=== PATIENT | female | born 1985 | race Caucasian/White ===

== ENCOUNTER 2022-09-12 08:45 | Inpatient (IN) | payer MEDICAID ==
[2022-10-03] MEDS ORDERED: Scopolamine 1.5 MG Transdermal Patch TOP ONE (05:30)
[2022-10-03] MEDS ORDERED: Celecoxib 200 MG Cap PO ONE (05:30)
[2022-10-03] MEDS ORDERED: Dextrose 5%-Lactated Ringers 1,000 ML IV SCH (06:30)
[2022-10-03] MEDS ORDERED: cefOXitin 2 GM in Sodium Chloride 0.9% 50 ML IV ONE (06:30)
[2022-10-03] MEDS ORDERED: cefOXitin 2 GM Vial ONE (06:39)
[2022-10-03] MEDS ORDERED: Lidocaine 1% with EPINEPHrine 1:100,000 50 ML MDV ONE (06:40)
[2022-10-03] MEDS ORDERED: Bupivacaine 0.5% 50 ML MDV ONE (06:40)
[2022-10-03] MEDS ORDERED: fentaNYL 250 MCG/5 ML SDV ONE ×2 (07:04→08:10)
[2022-10-03] MEDS ORDERED: Neostigmine Methylsulfate 1 MG/ML 5 ML Syringe ONE (07:06)
[2022-10-03] MEDS ORDERED: Dexamethasone 4 MG/ML SDV ONE (07:06)
[2022-10-03] MEDS ORDERED: Succinylcholine 200 MG/10 ML MDV ONE (07:06)
[2022-10-03] MEDS ORDERED: Ondansetron 4 MG/2 ML SDV ONE (07:06)
[2022-10-03] MEDS ORDERED: Rocuronium 50 MG/5 ML Vial ONE ×2 (07:06→08:10)
[2022-10-03] MEDS ORDERED: Propofol 200 MG/20 ML SDV ONE (07:06)
[2022-10-03] MEDS ORDERED: Glycopyrrolate 0.2 MG/ML 5 ML MDV ONE (07:06)
[2022-10-03] MEDS ORDERED: Ketamine 18 MG in Sodium Chloride 0.9% 19.82 ML IV SCH (07:45)
[2022-10-03] MEDS ORDERED: Ketamine 500 MG/5 ML MDV IV SCH (07:45)
[2022-10-03] MEDS ORDERED: Labetalol 20 MG/4 ML Syringe ONE (08:57)
[2022-10-03] MEDS ORDERED: Lactated Ringers 1,000 ML ONE (09:16)
[2022-10-03] MEDS ORDERED: fentaNYL 100 MCG/2 ML SDV ONE (09:49)
[2022-10-03] MEDS: Ondansetron 4 MG/2 ML SDV IVPUSH PRN ×3 (11:34→23:49)
[2022-10-03] MEDS ORDERED: Labetalol 20 MG/4 ML Syringe IVPUSH PRN (12:00)
[2022-10-03] MEDS ORDERED: diphenhydrAMINE 50 MG/ML SDV IVPUSH PRN (12:00)
[2022-10-03] MEDS ORDERED: Acetaminophen 500 MG Tab PO PRN (12:00)
[2022-10-03] MEDS ORDERED: traMADol 50 MG Tab PO PRN (12:00)
[2022-10-03] MEDS ORDERED: Pantoprazole 40 MG Vial IVPUSH SCH (12:30)
[2022-10-03] MEDS: HYDROmorphone 0.5 MG/0.5 ML Syringe IVPUSH PRN (12:36)
[2022-10-03] MEDS: cefOXitin 2 GM in Sodium Chloride 0.9% 50 ML IV SCH ×3 (12:38→23:50)
[2022-10-03] MEDS: hydrOXYzine HCl 50 MG/ML SDV IM PRN (14:38)
[2022-10-03] MEDS: Lisinopril 20 MG Tab PO SCH (14:40)
[2022-10-03] MEDS: Acetaminophen 500 MG Tab PO SCH ×2 (14:41→21:26)
[2022-10-03] MEDS: Metoclopramide 10 MG/2 ML SDV IVPUSH PRN (14:48)
[2022-10-03] MEDS: Dextrose 5%-Lactated Ringers 1,000 ML IV SCH ×2 (14:49→22:46)
[2022-10-03] MEDS: HYDROmorphone 1 MG/ML Syringe IV PRN ×3 (15:08→23:49)
[2022-10-03] MEDS: MVI, Adult with Vitamin K 10 ML, Thiamine 200 MG, Zinc/Copper/Manganese/Selenium 1 ML i... IV SCH ×4 (15:39)
[2022-10-03] MEDS: Enoxaparin 60 MG/0.6 ML Syringe SUBCUT SCH (17:58)
[2022-10-04] MEDS ORDERED: Iopamidol 612 MG/ML 30 ML SDV PO ONE (04:07)
[2022-10-04] MEDS: Acetaminophen 500 MG Tab PO SCH (05:14)
[2022-10-04] MEDS: Enoxaparin 60 MG/0.6 ML Syringe SUBCUT SCH ×2 (05:15→17:39)
[2022-10-04] MEDS: Ondansetron 4 MG/2 ML SDV IVPUSH PRN ×3 (05:45→23:12)
[2022-10-04] MEDS: cefOXitin 2 GM in Sodium Chloride 0.9% 50 ML IV SCH ×3 (05:46→17:37)
[2022-10-04] MEDS: HYDROmorphone 1 MG/ML Syringe IV PRN ×2 (05:46→23:30)
[2022-10-04] MEDS: Dextrose 5%-Lactated Ringers 1,000 ML IV SCH (05:51)
[2022-10-04] MEDS: Celecoxib 200 MG Cap PO SCH ×2 (08:41→20:41)
[2022-10-04] MEDS: SCOPOLAMINE PATCH CHECK TOP SCH (08:41)
[2022-10-04] MEDS: Metoclopramide 10 MG/2 ML SDV IVPUSH PRN ×2 (09:13→23:12)
[2022-10-04] MEDS: HYDROmorphone 0.5 MG/0.5 ML Syringe IVPUSH PRN (09:30)
[2022-10-04] MEDS: Lisinopril 20 MG Tab PO SCH (09:33)
[2022-10-04] MEDS ORDERED: Benzocaine/Cetylpyridinium/Menthol Lozenge MUCMEM PRN (09:59)
[2022-10-04] MEDS ORDERED: Dextrose 5%-Lactated Ringers 1,000 ML IV SCH (10:00)
[2022-10-04] MEDS: oxyCODONE 5 MG Tab PO PRN ×2 (11:02→18:42)
[2022-10-04] MEDS: Pantoprazole 40 MG Tab.CR PO SCH (11:07)
[2022-10-04] MEDS: Acetaminophen 160 MG Tab,Disintegrating PO SCH ×2 (13:25→21:01)
[2022-10-04] MEDS: hydrOXYzine HCl 50 MG/ML SDV IM PRN (14:12)
[2022-10-04] MEDS: MVI, Adult with Vitamin K 10 ML, Thiamine 200 MG, Zinc/Copper/Manganese/Selenium 1 ML i... IV SCH ×4 (15:14)
[2022-10-05] MEDS: Acetaminophen 160 MG Tab,Disintegrating PO SCH ×3 (05:43→21:26)
[2022-10-05] MEDS: Enoxaparin 60 MG/0.6 ML Syringe SUBCUT SCH ×2 (05:43→17:55)
[2022-10-05] MEDS: Pantoprazole 40 MG Tab.CR PO SCH (07:40)
[2022-10-05] MEDS ORDERED: LORazepam 1 MG Tab PO PRN (07:51)
[2022-10-05] MEDS ORDERED: Lidocaine 2% Viscous Solution 100 ML Bottle PO PRN (07:51)
[2022-10-05] MEDS ORDERED: Lidocaine 2% Viscous Solution 15 ML UD PO PRN (08:01)
[2022-10-05] MEDS ORDERED: Cyanocobalamin (Vitamin B12) 1,000 MCG/ML SDV IM ONE (09:00)
[2022-10-05] MEDS ORDERED: Scopolamine 1.5 MG Transdermal Patch TOP SCH (09:00)
[2022-10-05] MEDS: SCOPOLAMINE PATCH CHECK TOP SCH (10:26)
[2022-10-05] MEDS: Lisinopril 20 MG Tab PO SCH (10:32)
[2022-10-05] MEDS: Celecoxib 200 MG Cap PO SCH ×2 (10:32→20:31)
[2022-10-05] MEDS: Cyclobenzaprine 10 MG Tab PO PRN ×2 (13:16→21:26)
[2022-10-06] MEDS: Enoxaparin 60 MG/0.6 ML Syringe SUBCUT SCH (05:57)
[2022-10-06] MEDS: Acetaminophen 160 MG Tab,Disintegrating PO SCH (05:59)
[2022-10-06] MEDS: oxyCODONE 5 MG Tab PO PRN (06:14)
[2022-10-06] MEDS: Celecoxib 200 MG Cap PO SCH (08:58)
[2022-10-06] MEDS: Lisinopril 20 MG Tab PO SCH (08:58)
[2022-10-06] MEDS: Pantoprazole 40 MG Tab.CR PO SCH (08:58)
== END 2022-10-06 09:30 | disposition home or self-care (01) | DRG 621 ==
LOC: JP.SDSSCHI 10-03 05:26 → JP.MS 10-03 11:10
PROVIDERS: ADMIT Surgery; ATTEND Surgery
PROC: 0DB64Z3 Excision of Stomach, Percutaneous Endoscopic Approach, Vertical (ICD-10-PCS; principal; 2022-10-03)
PROC: 0FB24ZX Excision of Left Lobe Liver, Percutaneous Endoscopic Approach, Diagnostic (ICD-10-PCS; 2022-10-03)
PROC: 0D194ZB Bypass Duodenum to Ileum, Percutaneous Endoscopic Approach (ICD-10-PCS; 2022-10-03)
DX: E66.01 Morbid (severe) obesity due to excess calories (principal); I10 Essential (primary) hypertension; K44.9 Diaphragmatic hernia without obstruction or gangrene; G43.909 Migraine, unspecified, not intractable, without status migrainosus; R13.10 Dysphagia, unspecified; K21.9 Gastro-esophageal reflux disease without esophagitis; F41.8 Other specified anxiety disorders; R16.0 Hepatomegaly, not elsewhere classified; Z86.711 Personal history of pulmonary embolism; Z87.442 Personal history of urinary calculi; Z87.891 Personal history of nicotine dependence; Z68.43 Body mass index [BMI] 50.0-59.9, adult
CPT/HCPCS: 36415; 74240; 74240-26; 82947; 84703; 86850; 86900; 86901; 88307; 88313; A9270-GY; C9113; J0171; J0330; J0694; J1100; J1170; J1650; J2405; J2704; J2710; J2765; J2795; J3010; J3410; J3411; J3420; J3490; J7120; J7121; Q9967